=== PATIENT | female | born 1975 | race Caucasian/White ===

== ENCOUNTER → 2017-06-22 | Outpatient (CLI) | payer OTHER ==
[~2017-06-22] MED LIST: METHYLERGONOVI0.2 MG PO; ONDA8ODT MM; RXONDA4ODT MM
== END ==
LOC: LAB 11:25 → LAB SHORT 11:25
PROVIDERS: Registered Nurse Community Health
DX: Z12.4 Encounter for screening for malignant neoplasm of cervix (principal)
CPT/HCPCS: 87624; G0123